=== PATIENT | male | born 1945 | race Hispanic/Latino ===

== ENCOUNTER 2018-09-27 07:07 | Outpatient (CLI) | payer MEDICARE ==
--- NOTE | 2018-09-27 09:33 | ULT ---
RIGHT UPPER QUADRANT ULTRASOUND: Date: 09/27/18 COMPARISON: None. HISTORY: Gastroesophageal reflux disease, right upper quadrant pain. TECHNIQUE: Multiplanar Clifton scale sonographic imaging of the right upper quadrant obtained. FINDINGS: Pancreas is nonvisualized secondary to bowel gas. Portions of the hepatic parenchyma are obscured by bowel gas. No discrete focal liver lesion. Common bile duct measures 3.0 mm, within normal limits. No gallbladder wall thickening or pericholecystic fluid. Professor Of Psychology reports a negative Wright's sign. No gallstones are evident. Right kidney measures 14.3 cm in craniocaudal dimension and contains a 1.9 cm cyst. No hydronephrosis. IMPRESSION: No acute findings. POS: [facility]
== END 2018-09-27 07:08 | disposition home or self-care (01) ==
LOC: SCSULT 07:07
PROVIDERS: ATTEND Internal Medicine Gastroenterology
DX: K21.9 Gastro-esophageal reflux disease without esophagitis (principal); R52 Pain, unspecified; D12.6 Benign neoplasm of colon, unspecified
CPT/HCPCS: 76705

== ENCOUNTER 2019-05-23 09:29 | Outpatient (CLI) | payer MEDICARE ==
[~2019-05-23 09:29] MED LIST: Iopamidol 370 76% 100 ML VIAL ONE
--- NOTE | 2019-05-23 11:40 | CT ---
CT abdomen and pelvis with IV and oral contrast HISTORY: Left lower quadrant pain. COMPARISON: 01/02/2017. FINDINGS: Lung bases are clear. Some motion artifact. Significant gas is present within the nondepend ent portion of the right ventricle. This is most likely due to accidental injection during IV contrast administration. The radiology department will call to check on the patient to ask if he has had any symptoms. Cysts within the liver are unchanged. Low-density lesions of the spleen are stable and likely represe nt hemangiomas. Oval low density mass of the left adrenal gland is unchanged in size. On today's exam, it is more confidently characterized as low density, consistent with an adenoma. Multiple cysts of the cortex of the left kidney are similar in size and appearance to the previous ex am. The largest is at the inferior pole left kidney, measuring up to 18.8 cm oblique diameter on the coronal images. It displaces the bowel. No inflammation of the bowel. No evidence of bowel obstru ction. Urinary bladder is incompletely distended. Prostate gland remains enlarged. IMPRESSION: No acute inflammatory process is apparent. Very large left renal cysts, displacing but not obstructing the bowel. Large left adrenal adenoma is stable. Other chronic-type findings are also stable.
== END 2019-05-23 09:30 | disposition home or self-care (01) ==
LOC: SCSCT 09:29
PROVIDERS: ATTEND Internal Medicine Gastroenterology
DX: R10.32 Left lower quadrant pain (principal); N28.1 Cyst of kidney, acquired; D35.02 Benign neoplasm of left adrenal gland
CPT/HCPCS: 74177; 82565; Q9967